=== PATIENT | female | born 1990 | race Caucasian/White ===

== ENCOUNTER 2017-09-03 13:34 | Inpatient (IN) | payer MEDICAID ==
[~2017-09-03] VITALS: Ht 147.3 cm; Wt 40.5 kg
--- NOTE | ~2017-09-03 | OP ---
PATIENT NAME: ROSETTE RELILY MEDICAL RECORD: [id number] :89 LOCATION:[facility] ADMISSION DATE:09/03/17 SURGEON: DAMIR MCKEON MD DATE OF OPERATION: 09/04/2017 DATE OF OPERATION: 09/04/2017 SURGEON: Damir Mckeon MD PREOPERATIVE DIAGNOSES: 1. Crohn's disease. 2. Perirectal abscess. POSTOPERATIVE DIAGNOSES: 1. Crohn's disease. 2. Perirectal abscess. PROCEDURE PERFORMED: Incision and drainage of left-sided perirectal abscess, multiloculated, approximately 10 x 5 x 8 cm. ANESTHESIA: General. COMPLICATIONS: None. SPECIMENS: Anaerobic and aerobic fluid cultures. Case was grossly contaminated. ESTIMATED BLOOD LOSS: 30 cc. OPERATIVE COURSE: After consent was obtained, the patient was taken to the operating room and placed in supine position on the operating table. Next, general anesthesia was given via endotracheal intubation, after a timeout was performed that confirmed the correct patient and procedure. The patient was then placed into stirrups. The perineum was prepped and draped in typical sterile fashion. A 30 cc of local anesthetic was injected for a perineal block. Digital rectal exam was performed. The rectum was serially dilated using the [employer] retractors. The rectum and the vault were examined. There was no obvious fistula opening into the rectum. Next, an elliptical skin incision was made to the left of the rectum using a 15 blade scalpel. Blunt dissection was then performed with the hemostat until the abscess pocket was encountered. The abscess pocket was punctured. There was approximately 60 cc immediate return of purulent malodorous fluid. Anaerobic and aerobic fluid tissue cultures were obtained. Fluid cultures were obtained, all were sent to the laboratory for Gram stain and sensitivity. Blunt dissection was then performed. All loculations were broken with blunt finger dissection. The abscess cavity was then irrigated with normal saline until cleared. The wound was packed with Kerlix gauze soaked in Betadine and peroxide. At the end of the case, all needle and instrument counts were correct. No complications occurred. The patient was extubated and transferred to the PACU in stable condition. TRANSINT:[id number] Voice Confirmation ID: [id number] DOCUMENT ID: [id number] OPERATIVE REPORT [id number] ROSETTE REILLY DAMIR MCKEON MD at 0824 CC: [id number] DICTATION DATE: 09/04/17 1700 MEMBER SERVICE SPECIALIST: 09/04/17 1745 ADM IN [place] [id number] [place] [id number]
--- NOTE | ~2017-09-03 | DS ---
PATIENT:ROSETTE REILLY :89 MEDICAL RECORD: [id number] DISCHARGE SUMMARY ADMISSION DATE: 09/03/17 DISCHARGE DATE: 09/08/17 HISTORY: A 27-year-old female admitted from the clinic with mass, abscess to left groin and buttock area, had leukocytosis with fever and chills. ADMISSION DIAGNOSES: Perirectal abscess, Crohn disease. DISCHARGE DIAGNOSES: Perirectal abscess, Crohn's disease. HOSPITAL COURSE: The patient was admitted to the clinic. Surgery consulted for I&D. Infectious disease consulted. GI consulted. She underwent I&D. Cultures obtained and grew out multidrug resistant E. coli sensitive to meropenem, placed on IV antibiotics, wound packed and draining appropriately. The patient is cleared for discharge with continuation of IV antibiotics. RECOMMENDATIONS: Follow up for her group insurance special agent, Dr. Sargent. She was discharged with home health for IV antibiotics and wound care. PHYSICAL EXAMINATION: VITAL SIGNS ON DISCHARGE: Temp 98.1, blood pressure is 105/64, heart rate 82, respirations 17, O2 sats 100% on room air. HEART: Regular rate and rhythm. LUNGS: Clear. ABDOMEN: Soft, mild tenderness consistent with a disease process. No rebound, no guarding. EXTREMITIES: Present times 4. NEUROLOGIC: Intact. LABORATORY DATA: CBC: White count 10.6, hemoglobin 10.4, hematocrit 31.5, platelets 550. Chemistry shows sodium 138, potassium 4.0, chloride 104, bicarb 26.9, BUN 4, creatinine 0.5, glucose 89. The patient is discharged home in improved condition. Imperative she follow up with her group insurance special agent for aggressive control of her Crohn's disease. Also follow up with her primary care physician, Dr. Humphrey. Ten days of meropenem 1 g q.8 hours. Home health for IV antibiotics and wound care, PICC line placed prior to discharge. TRANSINT:[id number] Voice Confirmation ID: [id number] DOCUMENT ID: [id number] KRISTY HANNAH DO at 0809 CC: [id number] DICTATION DATE: 09/08/17917 MANAGER BAKERY: 09/08/17 1301 DIS IN 09/08/17 [place] [address]
[2017-09-03 19:52] VITALS: BP 118/77; Ht 147.3 cm; Wt 40.5 kg
[2017-09-03 20:15] LABS: BASOPHILS 0.2 % (0-2); EOSINOPHILS 0.2 % (0-7); HEMATOCRIT 30.2 % (36.0-48.0); HEMOGLOBIN 10.3 g/dL (12-16); IMMATURE GRANULOCYTES 0.4 % (0-5); LYMPHOCYTES 11.1 % (15-50); MCH 26.7 pg (26.0-34.0); MCHC 34.1 g/dL (31.0-37.0); MCV 78.2 fL (80.0-100.0); MEAN PLATELET VOLUME 8.6 fL (7.4-10.4); MONOCYTES 9.1 % (2-11); PLATELET COUNT 409 10x3/uL (130-400); RBC 3.86 10x6/uL (4.00-5.40); RDW 22.6 % (11.5-14.5); WBC 18.2 10x3/uL (4.8-10.8)
[2017-09-03 20:37] LABS: ALBUMIN 2.7 g/dL (3.4-5.0); ALKALINE PHOSPHATASE 121 U/L (46-116); ALT (SGPT) 16 U/L (10-68); BILIRUBIN - TOTAL 0.36 mg/dL (0.2-1.3); CALC OSMOLALITY 261 mosm/kg (275-300); CALCIUM 8.9 mg/dL (8.5-10.1); CARBON DIOXIDE 22.6 mmol/L (21.0-32.0); CHLORIDE - SERUM 97 mmol/L (98-107); CREATININE - SERUM 0.5 mg/dL (0.6-1.3); GLUCOSE 87 mg/dL (74-106); POTASSIUM - SERUM 3.4 mmol/L (3.5-5.1); PROTEIN - SERUM 7.5 g/dL (6.4-8.2); SODIUM 133 mmol/L (136-145); UREA NITROGEN 4 mg/dL (7-18); eGFR NON AFRICAN AMERICAN > 90 mL/min (90-120)
[2017-09-03 21:41] VITALS: BP 105/62
[2017-09-04 00:40] LABS: APPEARANCE HAZY (CLEAR); BILIRUBIN NEGATIVE (NEGATIVE); COLOR YELLOW (YELLOW); GLUCOSE NEGATIVE (NEGATIVE); KETONE MODERATE mg/dL (NEGATIVE); NITRITE NEGATIVE (NEGATIVE); PROTEIN 1+ mg/dL (NEGATIVE); SPECIFIC GRAVITY 1.015 (1.005-1.020); UROBILINOGEN NORMAL (NORMAL)
[2017-09-04 00:43] LABS: EPITHELIAL CELLS 0-5 /hpf (0-5); WHITE CELLS - URINE 0-5 /hpf (0-5)
[2017-09-04 00:44] LABS: BACTERIA FEW /hpf (NONE SEEN)
[2017-09-04 01:13] VITALS: BP 90/52
[2017-09-04 05:00] VITALS: BP 95/63
[2017-09-04 05:23] LABS: BASOPHILS 0.2 % (0-2); EOSINOPHILS 0.1 % (0-7); HEMATOCRIT 32.4 % (36.0-48.0); IMMATURE GRANULOCYTES 0.6 % (0-5); LYMPHOCYTES 9.9 % (15-50); MCH 26.9 pg (26.0-34.0); MCV 79.2 fL (80.0-100.0); MEAN PLATELET VOLUME 8.9 fL (7.4-10.4); NEUTROPHILS 81.2 % (40-80); PLATELET COUNT 464 10x3/uL (130-400); RBC 4.09 10x6/uL (4.00-5.40); RDW 22.9 % (11.5-14.5); WBC 18.8 10x3/uL (4.8-10.8)
[2017-09-04 05:48] LABS: ALBUMIN 2.5 g/dL (3.4-5.0); ALKALINE PHOSPHATASE 119 U/L (46-116); ALT (SGPT) 14 U/L (10-68); CALC OSMOLALITY 270 mosm/kg (275-300); CALCIUM 8.5 mg/dL (8.5-10.1); CARBON DIOXIDE 20.8 mmol/L (21.0-32.0); CHLORIDE - SERUM 100 mmol/L (98-107); CREATININE - SERUM 0.5 mg/dL (0.6-1.3); GLUCOSE 97 mg/dL (74-106); PROTEIN - SERUM 7.4 g/dL (6.4-8.2); SODIUM 137 mmol/L (136-145); UREA NITROGEN 3 mg/dL (7-18); eGFR NON AFRICAN AMERICAN > 90 mL/min (90-120)
[2017-09-04 08:53] VITALS: BP 101/65
[2017-09-04 12:24] VITALS: BP 95/56
[2017-09-04 16:27] VITALS: BP 103/62
[2017-09-04 17:45] VITALS: BP 107/65
[2017-09-05 06:45] LABS: BASOPHILS 0.1 % (0-2); EOSINOPHILS 0.8 % (0-7); HEMATOCRIT 31.7 % (36.0-48.0); HEMOGLOBIN 10.6 g/dL (12-16); IMMATURE GRANULOCYTES 0.8 % (0-5); MCH 26.5 pg (26.0-34.0); MCHC 33.4 g/dL (31.0-37.0); MCV 79.3 fL (80.0-100.0); MEAN PLATELET VOLUME 8.6 fL (7.4-10.4); MONOCYTES 10.1 % (2-11); NEUTROPHILS 75.2 % (40-80); PLATELET COUNT 438 10x3/uL (130-400); RDW 22.6 % (11.5-14.5); WBC 15.3 10x3/uL (4.8-10.8)
[2017-09-05 07:01] LABS: ALBUMIN 2.2 g/dL (3.4-5.0); ALKALINE PHOSPHATASE 109 U/L (46-116); ALT (SGPT) 12 U/L (10-68); BILIRUBIN - TOTAL 0.31 mg/dL (0.2-1.3); CALC OSMOLALITY 267 mosm/kg (275-300); CALCIUM 8.5 mg/dL (8.5-10.1); CARBON DIOXIDE 20.7 mmol/L (21.0-32.0); CHLORIDE - SERUM 105 mmol/L (98-107); CREATININE - SERUM 0.6 mg/dL (0.6-1.3); GLUCOSE 105 mg/dL (74-106); POTASSIUM - SERUM 3.5 mmol/L (3.5-5.1); PROTEIN - SERUM 6.8 g/dL (6.4-8.2); SODIUM 136 mmol/L (136-145); UREA NITROGEN 1 mg/dL (7-18); VANCOMYCIN - TROUGH 4.5 ug/mL (10.0-20.0); eGFR NON AFRICAN AMERICAN > 90 mL/min (90-120)
[2017-09-05 08:40] VITALS: BP 104/72
[2017-09-05 09:02] LABS: ERYTHROCYTE SEDIMENTATION RATE 60 mm/hr (0-20)
[2017-09-05 12:30] VITALS: BP 100/67
[2017-09-05 16:45] VITALS: BP 101/72
[2017-09-05 20:00] VITALS: BP 105/69
[2017-09-06] VITALS: BP 91/52
[2017-09-06 04:00] VITALS: BP 104/50
[2017-09-06 08:49] VITALS: BP 105/64
[2017-09-06 12:36] VITALS: BP 115/77
[2017-09-06 16:36] VITALS: BP 117/52
[2017-09-06 20:00] VITALS: BP 115/68
[2017-09-07] VITALS: BP 122/62
[2017-09-07 04:00] VITALS: BP 113/73
[2017-09-07 04:49] LABS: BASOPHILS 0.2 % (0-2); EOSINOPHILS 3.8 % (0-7); HEMATOCRIT 29.6 % (36.0-48.0); IMMATURE GRANULOCYTES 0.7 % (0-5); LYMPHOCYTES 23.3 % (15-50); MCH 26.8 pg (26.0-34.0); MCHC 33.8 g/dL (31.0-37.0); MCV 79.4 fL (80.0-100.0); MEAN PLATELET VOLUME 8.6 fL (7.4-10.4); MONOCYTES 9.6 % (2-11); NEUTROPHILS 62.4 % (40-80); PLATELET COUNT 490 10x3/uL (130-400); RBC 3.73 10x6/uL (4.00-5.40); RDW 22.9 % (11.5-14.5)
[2017-09-07 04:56] LABS: WBC 10.1 10x3/uL (4.8-10.8)
[2017-09-07 05:06] LABS: ALBUMIN 1.9 g/dL (3.4-5.0); ALKALINE PHOSPHATASE 90 U/L (46-116); ALT (SGPT) 37 U/L (10-68); BILIRUBIN - TOTAL 0.15 mg/dL (0.2-1.3); CALC OSMOLALITY 279 mosm/kg (275-300); CALCIUM 7.8 mg/dL (8.5-10.1); CARBON DIOXIDE 23.4 mmol/L (21.0-32.0); CHLORIDE - SERUM 110 mmol/L (98-107); CREATININE - SERUM 0.4 mg/dL (0.6-1.3); GLUCOSE 101 mg/dL (74-106); POTASSIUM - SERUM 3.2 mmol/L (3.5-5.1); PROTEIN - SERUM 5.7 g/dL (6.4-8.2); SODIUM 142 mmol/L (136-145); UREA NITROGEN 3 mg/dL (7-18); eGFR NON AFRICAN AMERICAN > 90 mL/min (90-120)
[2017-09-07 09:37] VITALS: BP 103/72
[2017-09-07 11:59] VITALS: BP 107/70
[2017-09-07 16:12] VITALS: BP 95/51
[2017-09-07 20:00] VITALS: BP 110/62
[2017-09-08] VITALS: BP 108/63
[2017-09-08 04:00] VITALS: BP 106/66
[2017-09-08 04:39] LABS: BASOPHILS 0.4 % (0-2); EOSINOPHILS 3.6 % (0-7); HEMATOCRIT 31.5 % (36.0-48.0); HEMOGLOBIN 10.4 g/dL (12-16); IMMATURE GRANULOCYTES 0.9 % (0-5); MCH 26.5 pg (26.0-34.0); MCV 80.2 fL (80.0-100.0); MEAN PLATELET VOLUME 8.6 fL (7.4-10.4); MONOCYTES 9.2 % (2-11); NEUTROPHILS 57.9 % (40-80); PLATELET COUNT 550 10x3/uL (130-400); RBC 3.93 10x6/uL (4.00-5.40); RDW 23.3 % (11.5-14.5); WBC 10.6 10x3/uL (4.8-10.8)
[2017-09-08 04:51] LABS: CALC OSMOLALITY 271 mosm/kg (275-300); CALCIUM 8.7 mg/dL (8.5-10.1); CARBON DIOXIDE 26.9 mmol/L (21.0-32.0); CHLORIDE - SERUM 104 mmol/L (98-107); CREATININE - SERUM 0.5 mg/dL (0.6-1.3); GLUCOSE 89 mg/dL (74-106); PHOSPHOROUS 2.8 mg/dL (2.5-4.9); SODIUM 138 mmol/L (136-145); UREA NITROGEN 4 mg/dL (7-18); eGFR NON AFRICAN AMERICAN > 90 mL/min (90-120)
[2017-09-08 08:09] VITALS: BP 105/64
[2017-09-08] MEDS ORDERED: MERREM 1 GM/NS 11 G1 IV (09:10)
[2017-09-08 12:03] VITALS: BP 109/64
== END 2017-09-08 16:07 | disposition home or self-care (01) | DRG 394 ==
LOC: D.MS 13:34 → D.SDCHOLD 13:34 → D.MS 15:27
PROVIDERS: Family Medicine; Internal Medicine Gastroenterology; Surgery
PROC: 0H98XZZ Drainage of Buttock Skin, External Approach (ICD-10-PCS; principal; 2017-09-04 16:30)
PROC: 05HB33Z Insertion of Infusion Device into Right Basilic Vein, Percutaneous Approach (ICD-10-PCS; 2017-09-08)
PROC: B54MZZA Ultrasonography of Right Upper Extremity Veins, Guidance (ICD-10-PCS; 2017-09-08)
DX: K61.1 Rectal abscess (principal); L02.214 Cutaneous abscess of groin; K50.90 Crohn's disease, unspecified, without complications; B96.20 Unspecified Escherichia coli [E. coli] as the cause of diseases classified elsewhere